=== PATIENT | female | born 1955 | race Caucasian/White ===

== ENCOUNTER 2018-06-15 07:09 | Day surgery (SDC) | payer OTHER ==
[~2018-06-15 07:09] MED LIST: LACTATED RINGERS 1,000 ML IV SCH
[2018-06-15 07:31] VITALS: TEMP 98.1
[2018-06-15] MEDS ORDERED: LACTATED RINGERS 1,000 ML IV ONE (07:31)
[2018-06-15] MEDS ORDERED: LIDOCAINE 1% 20 ML VIAL (10MG/ML) FOR IV START INTRADERMA ONE (07:31)
[2018-06-15] MEDS ORDERED: PROPOFOL 10 MG/ML 20 ML VIAL IV ONE (08:38)
[2018-06-15] MEDS ORDERED: LIDOCAINE 1% INJ 10MG/ML (20 ML MDV) ONE (08:38)
--- NOTE | 2018-06-15 09:07 | P.PCN ---
Date of Procedure: 06/15/18 Procedure(s) Performed: Procedure: Total colonoscopy. Preoperative diagnosis: Screening for neoplasia. Postoperative diagnosis: Mild sigmoid diverticulosis with no evidence of acute diverticulitis, strictures, polyps or cancer. Preparation: HalfLytely prep. Sedation: Was provided by anesthesia. Brief clinical history: The patient is a 62-year-old female who is scheduled for this evaluation for screening for neoplasia. She had a prior exam in 2009. She has no abdominal complaints, bleeding or anemia. Procedure: With the patient on her left lateral decubitus position and after informed consent and adequate sedation, the perianal area was inspected and it did not show any fissures or fistulas. There were no masses felt on digital rectal examination. The Olympus CFQ 160L video colonoscope was then inserted in the rectum in the usual fashion and advanced to the cecum. There were few diverticular orifices seen scattered in the sigmoid but I saw no evidence of acute diverticulitis or strictures. No polyps or tumors were seen. The mucosa appeared healthy. I retroflexed the endoscope in the rectum before the endoscope was withdrawn. The patient tolerated the procedure well. Plan: The patient was reassured. Discussed dietary measures. She will follow- up with you as planned and I recommended repeat exam in 10 years.
[2018-06-15 09:34] VITALS: BP 125/84; PULSE 50; RESP 16
[2018-06-15] MEDS ORDERED: LACTATED RINGERS 1,000 ML IV SCH (21:45)
== END 2018-06-15 09:42 | disposition home or self-care (01) ==
LOC: ORWHC2ENDO 07:09
DX: Z12.11 Encounter for screening for malignant neoplasm of colon (principal); K57.30 Diverticulosis of large intestine without perforation or abscess without bleeding; E07.9 Disorder of thyroid, unspecified; Z79.82 Long term (current) use of aspirin; Z79.890 Hormone replacement therapy
CPT/HCPCS: J2001; J2704; G0121

== ENCOUNTER → 2021-03-02 | Outpatient (CLI) | payer OTHER ==
--- NOTE | 2021-03-02 13:18 | MR ---
EXAMINATION TYPE: MR knee LT wo con DATE OF EXAM: 03/02/2021 COMPARISON: 12/11/2010 HISTORY: Left knee pain. Multiplanar multiecho imaging of the left knee was performed without contrast. There is knee joint effusion. There is evidence of a complete tear of the anterior cruciate ligament. Posterior cruciate ligament is intact. The collateral ligaments are intact. There is hypertrophic sp urring of the lateral femoral and tibial condyles. There is significant narrowing of the lateral join t space. There is increased signal throughout the entire lateral meniscus. There is thinning of the m eniscus. There is small area of increased signal in the posterior horn medial meniscus extending to t he inferior surface. There is subchondral increased signal on the T2 images in the lateral tibial condyle consistent with degenerative cyst formation and bone bruise. There is hypertrophic spurring on the patella. There is hypertrophic spurring of the anterior aspect of the femoral condyles. IMPRESSION: Moderately severe osteoarthritis that is worse in the lateral joint space. Subchondral edema in the l ateral tibial condyle. Extensive tears of the lateral meniscus. There is small oblique tear of the po sterior horn medial meniscus. Knee joint effusion. Complete tear of the anterior cruciate ligament. Mild subcutaneous edema over th e anterior patella tendon. There is progression of the osteoarthritis compared to old exam. Anterior cruciate ligament tear is a change compared to old exam. Knee joint effusion slightly increased compared to old exam.
== END | disposition home or self-care (01) ==
LOC: RADMRIMAIN 11:31
PROVIDERS: ATTEND Orthopaedic Surgery
DX: M17.12 Unilateral primary osteoarthritis, left knee (principal); S83.242A Other tear of medial meniscus, current injury, left knee, initial encounter; S83.512A Sprain of anterior cruciate ligament of left knee, initial encounter; X58.XXXA Exposure to other specified factors, initial encounter

== ENCOUNTER → 2021-03-19 | Outpatient (CLI) | payer OTHER ==
[2021-03-19 10:20] LABS: Basophils % (A) 1 %; Eosinophils # (A) 0.2 k/uL (0-0.7); Eosinophils % (A) 2 %; HCT 39.5 % (34.0-46.0); HGB 13.4 gm/dL (11.4-16.0); Lymphocytes # (A) 1.8 k/uL (1.0-4.8); Lymphocytes % (A) 26 %; MCH 30.2 pg (25.0-35.0); MCHC 33.9 g/dL (31.0-37.0); MCV 89.2 fL (80.0-100.0); Mean Platelet Volume 8.6; Monocytes # (A) 0.6 k/uL (0-1.0); Monocytes % (A) 8 %; Neutrophils # (A) 4.5 k/uL (1.3-7.7); Neutrophils % (A) 62 %; Platelet Count 302 k/uL (150-450); RBC 4.43 m/uL (3.80-5.40); RDW 13.7 % (11.5-15.5); WBC 7.2 k/uL (3.8-10.6)
[2021-03-19 10:43] LABS: Potassium 4.8 mmol/L (3.5-5.1)
== END | disposition home or self-care (01) ==
LOC: LABPAT 09:08
PROVIDERS: ATTEND Orthopaedic Surgery
DX: Z01.810 Encounter for preprocedural cardiovascular examination (principal); Z01.812 Encounter for preprocedural laboratory examination; M23.92 Unspecified internal derangement of left knee
CPT/HCPCS: 36415; 80051; 85025; 93005

== ENCOUNTER → 2021-04-03 | Day surgery (SDC) | payer OTHER ==
--- NOTE | 2021-04-02 17:49 | HP ---
HISTORY AND PHYSICAL DATE OF SURGERY: 04/03/2021 Michelle Cooney is a 65-year-old patient seen with progressive left knee pain. We discussed options for treatment. She elected to proceed with arthroscopy. Consent was obtained. PAST MEDICAL HISTORY: Hypothyroidism. PAST SURGICAL HISTORY: Knee arthroscopy. DAILY MEDICATIONS: Aleve, levothyroxine. ALLERGIES: None. SOCIAL HISTORY: She denies current tobacco use. PHYSICAL EVALUATION OF THE LEFT KNEE: Range of motion 0 to 130. Tenderness along the medial joint line. Tenderness along the lateral joint line. Positive medial Kiera's. Positive lateral Kiera's. Ligaments stable. Hip rotation without pain. Distal neurovascular exam intact. RADIOGRAPHS: Radiographs of the left knee revealed some moderate osteoarthritic changes. MRI left knee revealed medial and lateral meniscal tears along with ACL tear and intraarticular effusion. IMPRESSION: 1. Internal derangement of left knee with medial and lateral meniscal tears. 2. Left knee ACL tear. 3. Hypothyroidism. PLAN: Left knee arthroscopy with partial meniscectomy and debridement. MMODL / IJN: [id number] /
[~2021-04-03] MED LIST changes: +BUPIVACAINE (PF) 0.25% 30 ML VIAL INTRAARTIC ONE; +DEXAMETHASONE SOD PHOSPHATE 4 MG/ML 1 ML VIAL IV ONE; +HYDROcodone/APAP 5-325MG 1 EACH TAB ONE; +HYDROcodone/APAP 5-325MG 1 EACH TAB PO ONE; +HYDROmorphone 0.5 MG/0.5 ML SYRINGE IVP PRN; +KETOROLAC 15 MG/ML 1 ML VIAL ONE; +LIDOCAINE 1% (10MG/ML) FOR IV START INTRADERMA PRN; +LIDOCAINE 1% INJ 10MG/ML (20 ML MDV) ONE; +METOCLOPRAMIDE 5 MG/ML 2 ML VIAL IVP PRN; +MIDAZOLAM 2 MG/2 ML VIAL IV PRN; +MIDAZOLAM 2 MG/2 ML VIAL ONE; +ONDANSETRON 4 MG/2 ML VIAL IVP ONE; +PROPOFOL 10 MG/ML 20 ML VIAL IV ONE; +fentaNYL (PF) 50 MCG/ML 2 ML AMP ONE
--- NOTE | 2021-04-03 10:01 | P.OP ---
Date of Procedure: 04/03/21 Preoperative Diagnosis: Internal derangement left knee Postoperative Diagnosis: 1. Tear lateral meniscus left knee 2. Grade 2/3 chondromalacia medial femoral condyle left knee 3. Grade 4 chondromalacia lateral tibial plateau left knee 4. Grade 4 chondromalacia femoral sulcus left knee 5. Reactive synovitis medial, lateral and suprapatellar compartments left knee Procedure(s) Performed: 1. Arthroscopic partial lateral meniscectomy left knee 2. Arthroscopic chondroplasty medial femoral condyle left knee 3. Arthroscopic partial synovectomy medial, lateral and suprapatellar compartments left knee Anesthesia: KULWINDERA, local Surgeon: Hai Ríos Estimated Blood Loss (ml): 9 Pathology: none sent Condition: stable Disposition: PACU Indications for Procedure: 65-year-old patient seen with progressive left knee pain. After having treatment options discussed, she elected to proceed with arthroscopy. Operative Findings: See description of procedure Description of Procedure: Patient was taken to the operative suite. Patient underwent a general anesthetic by the department of anesthesia. Patient was given preoperative antibiotics. The left lower extremity was placed in a well-padded arthroscopic leg myers. The left leg was prepped and draped in the normal sterile orthopedic fashion. A lateral parapatellar and suprapatellar incision was made. Trochars were inserted. Arthroscopy was initiated. Suprapatellar pouch revealed diffuse thick reactive synovitis. The patellofemoral joint appeared to articulate congruently. There with grade 4 chondromalacia of the femoral sulcus with areas of exposed bone. The scope was guided into the medial gutter. No loose bodies or plica were identified. The scope was then guided into the medial compartment. A medial parapatellar incision was made. Trocar inserted followed by probe. The medial meniscus was found to be stable. There were grade 2/3 chondromalacia changes of the medial femoral condyle some osteochondral tears present. There was thick reactive synovitis anteriorly. I performed a chondroplasty of the medial femoral condyle getting down to stable osteochondral tissue. I performed a partial synovectomy decompressing the reactive synovitis. The shaver was removed. The residual osteochondral surface was stable. There was good decompression of the synovitis. Scope and probe were then guided into the intercondylar notch. Cruciates were identified, probed and found to be stable. The scope and probe were then guided into lateral compartment. There was a complex tear involving the posterior horn of the lateral meniscus extending into the mid body. There was a radial tear of the anterior horn of lateral meniscus. There were grade 2/3 chondral malacia changes of the lateral femoral condyle without osteochondral tears. There was an area of grade 4 chondromalacia involving the posterior aspect of the lateral tibial plateau with exposed bone. There was thick reactive synovitis anteriorly. I performed a partial lateral meniscectomy getting down to stable meniscal tissue. I performed a partial synovectomy decompressing the thick reactive synovitis. The shaver was removed. The residual meniscus was stable. There was good decompression of the synovitis. The scope was in guided back into the suprapatellar compartment. I introduced a motorized shaver into the suprapatellar compartment. I debrided some piecemeal fragments of meniscus I encountered. I performed a partial synovectomy decompressing the thick reactive synovitis. The shaver was removed. There was good decompression of the synovitis. I now took one more look on the entire knee, no residual debris. Instruments were now removed from the joint. The joint was infiltrated with .25% Marcaine. The portal sites were approximated with nylon suture. Sterile dressings were applied. The patient was placed into a BETZAIDA hose. No tourniquet was utilized. The patient was awakened, transferred to a bed and taken to recovery stable satisfactory condition.
[2021-04-03 10:03] VITALS: TEMP 97.1
[2021-04-03 10:17] VITALS: RESP 16
[2021-04-03 11:30] VITALS: BP 124/69; PULSE 40
== END | disposition home or self-care (01) ==
LOC: OR 07:49
PROVIDERS: ATTEND Orthopaedic Surgery
DX: M94.262 Chondromalacia, left knee (principal); S83.282A Other tear of lateral meniscus, current injury, left knee, initial encounter; E03.9 Hypothyroidism, unspecified; Z79.890 Hormone replacement therapy; Z79.82 Long term (current) use of aspirin
CPT/HCPCS: 29881; J2250; J1100; J0690; J2405; J2001; J3010; J1885; J2704

== ENCOUNTER → 2022-06-19 | Outpatient (CLI) | payer OTHER | END | disposition home or self-care (01) | LOC: LABPAT 10:11 | PROVIDERS: ATTEND Orthopaedic Surgery | DX: Z01.812 Encounter for preprocedural laboratory examination (principal); M17.12 Unilateral primary osteoarthritis, left knee; Z22.322 Carrier or suspected carrier of Methicillin resistant Staphylococcus aureus | CPT/HCPCS: 87070 ==

== ENCOUNTER → 2022-07-18 | Outpatient (CLI) | payer OTHER ==
[2022-07-18 17:04] LABS: INR 0.93 (0.90-1.11); Prothrombin Time 10.5 sec (9.9-11.9)
[2022-07-18 17:47] LABS: Basophils # (A) 0.04 X 10*3/uL (0.00-0.10); Basophils % (A) 0.5 %; Eosinophils # (A) 0.16 X 10*3/uL (0.04-0.35); Eosinophils % (A) 2.1 %; HCT 39.4 % (37.2-46.3); HGB 12.3 g/dL (12.0-15.0); Immature Grans, Automated 0.3 %; Lymphocytes # (A) 2.02 X 10*3/uL (0.90-5.00); Lymphocytes % (A) 26.2 %; MCH 28.9 pg (27.0-32.0); MCHC 31.2 g/dL (32.0-37.0); MCV 92.7 fL (80.0-97.0); Mean Platelet Volume 12.2 fL (9.5-12.2); Monocytes # (A) 0.57 X 10*3/uL (0.20-1.00); Monocytes % (A) 7.4 %; NRBC Per 100 WBC 0 /100 WBCS (0.0-0.0); Neutrophils % (A) 63.5 %; Platelet Count 234 X 10*3/uL (140-440); RBC 4.25 X 10*6/uL (4.10-5.20); RDW 14.3 % (11.5-14.5); WBC 7.71 X 10*3/uL (4.50-10.00)
[2022-07-18 17:48] LABS: African American GFR (CKD) 90.3 (60.0-200.0); Anion Gap 12.3 mmol/L (10.00-18.00); BUN/Creat Ratio 15.5 Ratio (12.00-20.00); Blood Urea Nitrogen 12.4 mg/dL (9.0-27.0); Calcium 9.8 mg/dL (8.7-10.3); Carbon Dioxide 27.7 mmol/L (20.0-27.5); Non-African American GFR(CKD) 77.9 (60.0-200.0); Potassium 4.3 mmol/L (3.5-5.5)
== END | disposition home or self-care (01) ==
LOC: LABPAT 12:52
PROVIDERS: ATTEND Orthopaedic Surgery
DX: Z01.812 Encounter for preprocedural laboratory examination (principal); M17.12 Unilateral primary osteoarthritis, left knee
CPT/HCPCS: 80048; 85025; 85610

== ENCOUNTER → 2022-07-18 | Outpatient (CLI) | payer OTHER | END | disposition home or self-care (01) | LOC: LABWHC1 12:57 | PROVIDERS: ATTEND Family Medicine | DX: Z53.9 Procedure and treatment not carried out, unspecified reason (principal) ==

== ENCOUNTER 2022-08-04 10:34 | Day surgery (SDC) | payer OTHER ==
[2022-07-28 14:16] VITALS: BMI 30.9
--- NOTE | 2022-08-03 22:46 | HP ---
HISTORY AND PHYSICAL DATE OF SURGERY: 08/04/2022. HISTORY OF PRESENT ILLNESS: Michelle Cooney is a 66-year-old patient, seen with symptomatic left knee osteoarthritis. After treatment options were discussed, she elected to proceed with left total knee arthroplasty. Consent was obtained. Medical clearance was provided by Dr. Charles Wan. PAST MEDICAL HISTORY: Hypothyroidism. PAST SURGICAL HISTORY: Left knee arthroscopy. DAILY MEDICATIONS: 1. Aleve. 2. Levothyroxine. ALLERGIES: None. SOCIAL HISTORY: She denies tobacco use. PHYSICAL EVALUATION OF THE LEFT KNEE: Range of motion is -2/3 to 120. Mild effusion. Tenderness along the lateral joint line. Crepitus along the lateral patellofemoral compartments. Pain with patellofemoral compression. Ligaments are stable. Hip rotation is without pain. Distal neurovascular exam is intact. RADIOGRAPHS: Radiographs of the left knee revealed severe lateral compartment and unydhprl-[id number] patellofemoral compartment osteoarthritic changes. IMPRESSION: 1. Left knee osteoarthritis. 2. Hypothyroidism. PLAN: Left total knee arthroplasty. MMODL / IJN: [id number] /
[~2022-08-04 10:34] MED LIST changes: +ACETAMINOPHEN TAB 500 MG TAB PO PRN; -BUPIVACAINE (PF) 0.25% 30 ML VIAL INTRAARTIC ONE; -DEXAMETHASONE SOD PHOSPHATE 4 MG/ML 1 ML VIAL IV ONE; -HYDROcodone/APAP 5-325MG 1 EACH TAB ONE; -HYDROcodone/APAP 5-325MG 1 EACH TAB PO ONE; -HYDROmorphone 0.5 MG/0.5 ML SYRINGE IVP PRN; -KETOROLAC 15 MG/ML 1 ML VIAL ONE; -LACTATED RINGERS 1,000 ML IV SCH; -LIDOCAINE 1% (10MG/ML) FOR IV START INTRADERMA PRN; -LIDOCAINE 1% INJ 10MG/ML (20 ML MDV) ONE; +MELOXICAM 7.5 MG TAB PO PRN; -METOCLOPRAMIDE 5 MG/ML 2 ML VIAL IVP PRN; -MIDAZOLAM 2 MG/2 ML VIAL IV PRN; -MIDAZOLAM 2 MG/2 ML VIAL ONE; -ONDANSETRON 4 MG/2 ML VIAL IVP ONE; -PROPOFOL 10 MG/ML 20 ML VIAL IV ONE; +TRANEXAMIC ACID IN NACL,ISO-OS 1,000 MG in SALINE 1 100ML.BAG IVPB PRN; -fentaNYL (PF) 50 MCG/ML 2 ML AMP ONE
[2022-08-04] MEDS ORDERED: DEXAMETHASONE SOD PHOSPHATE 4 MG/ML 1 ML VIAL IV ONE (10:55)
[2022-08-04] MEDS ORDERED: LIDOCAINE 1% (10MG/ML) FOR IV START INTRADERMA PRN (10:55)
[2022-08-04] MEDS ORDERED: ONDANSETRON 4 MG/2 ML VIAL IVP ONE (10:55)
[2022-08-04] MEDS ORDERED: LACTATED RINGERS 1,000 ML IV SCH (10:55)
[2022-08-04] MEDS ORDERED: ONDANSETRON 4 MG/2 ML VIAL ONE (10:58)
[2022-08-04] MEDS ORDERED: MIDAZOLAM 2 MG/2 ML VIAL IVP ONE (11:38)
[2022-08-04] MEDS ORDERED: HYDROmorphone (PF) 1 MG/ML ONE (12:16)
[2022-08-04] MEDS ORDERED: ROCURONIUM 10 MG/ML (5 ML VIAL) IV ONE (12:16)
[2022-08-04] MEDS ORDERED: SUCCINYLCHOLINE CHLORIDE 200 MG/10 ML VIAL IV ONE (12:16)
[2022-08-04] MEDS ORDERED: ROPIVACAINE 5 MG/ML 30 ML VIAL ONE (12:16)
[2022-08-04] MEDS ORDERED: LIDOCAINE 2% INJ 20 MG/ML (2 ML VIAL) ONE (12:16)
[2022-08-04] MEDS ORDERED: SODIUM CHLORIDE 0.9% (PF) 10 ML VIAL ONE (12:16)
[2022-08-04] MEDS ORDERED: GLYCOPYRROLATE 0.2 MG/ML 2 ML VIAL ONE (12:16)
[2022-08-04] MEDS ORDERED: MIDAZOLAM 2 MG/2 ML VIAL ONE (12:16)
[2022-08-04] MEDS ORDERED: TRANEXAMIC ACID IN NACL,ISO-OS 1,000 MG/100 ML BAG ONE (12:16)
[2022-08-04] MEDS ORDERED: fentaNYL (PF) 50 MCG/ML 2 ML AMP ONE (12:16)
[2022-08-04] MEDS ORDERED: PROPOFOL 10 MG/ML 20 ML VIAL IV ONE (12:16)
[2022-08-04] MEDS ORDERED: NEOSTIGMINE 1 MG/ML 10 ML VIAL ONE (12:16)
[2022-08-04] MEDS ORDERED: ceFAZolin 1,000 MG in SODIUM CHLORIDE 0.9% 1,000 ML IRRIGATION ONE (12:45)
[2022-08-04] MEDS ORDERED: LACTATED RINGERS 1,000 ML IV ONE ×2 (14:03→15:36)
[2022-08-04] MEDS ORDERED: ONDANSETRON 4 MG/2 ML VIAL IVP PRN (14:03)
[2022-08-04] MEDS ORDERED: HYDROmorphone 1 MG/ML 1 ML SYRINGE IVP PRN (14:03)
[2022-08-04] MEDS ORDERED: HYDROcodone/APAP 7.5-325MG 1 EACH TAB PO PRN (14:03)
[2022-08-04] MEDS ORDERED: HYDROmorphone 0.5 MG/0.5 ML SYRINGE IVP PRN ×2 (14:03)
[2022-08-04] MEDS ORDERED: NALOXONE 0.4 MG/ML 1 ML VIAL IV PRN (14:03)
[2022-08-04] MEDS ORDERED: HYDROcodone/APAP 5-325MG 1 EACH TAB PO PRN (14:03)
--- NOTE | 2022-08-04 14:03 | P.OP ---
Date of Procedure: 08/04/22 Preoperative Diagnosis: Left knee osteoarthritis Postoperative Diagnosis: Left knee osteoarthritis Procedure(s) Performed: Left total knee arthroplasty Implants: 1. Depuy attune size 5 narrow left cruciate retaining cemented femur 2. Depuy attune size 4 fixed bearing cemented tibial baseplate 3. Depuy attune size 5 fixed bearing cruciate retaining 5 mm polyethylene tibial insert 4. Depuy attune 38 mm all polyethylene cemented patella Anesthesia: GETA, regional (Adductor canal catheter, Ipack block) Surgeon: Hai Ríos [facility] Specialist #1: Mohan Lora Estimated Blood Loss (ml): 50 Pathology: other (Bone) Condition: stable Disposition: PACU Indications for Procedure: 66-year-old patient seen with symptomatic left knee osteoarthritis. After treatment options were discussed, she elected to proceed with left total knee arthroplasty. Operative Findings: see description of procedure Description of Procedure: Patient was taken to the operative suite after having an adductor canal catheter placed by the department of anesthesia. Patient underwent a general anesthetic by the department of anesthesia. Patient was given preoperative IV intake antibiotics and TXA. A well-padded tourniquet was placed about the left lower extremity. The lower extremity was then prepped and draped in the normal sterile orthopedic fashion. The extremity was elevated, a tourniquet was insufflated to 300. A standard anterior incision was made sharply through skin. Dissection was taken down through the subcutaneous soft tissues down to the extensor mechanism. A medial arthrotomy was performed, patella was everted and knee was flexed. There was advanced osteoarthritis noted. I introduced my distal intramedullary femoral drill. I then introduced the distal femoral cutting jig. Juancho ROBERT secured the cutting jig with 2 pins. I held retractors in position while Juancho ROBERT performed the distal femoral resection through the guide area we now removed her distal femoral cutting guide. We now placed our 4-in-1 femoral cutting block and positioned and it was secured with 2 pins by Juancho ROBERT while I held the block in position. The distal femoral finishing was now completed. A proximal tibial cutting guide was positioned. I held the guide in the appropriate position with both hands while Juancho ROBERT inserted stabilizing pins into the guide. Proximal tibial cut was made. We now placed a trial femoral component into position, along with an appropriate size tibial tray and insert. We now took the knee through range of motion and had full extension good flexion and good overall soft tissue balance noted. The patella was everted and stabilized with 2 towel clips held by Juancho ROBERT while I performed a flush with patellar quad tendon utilizing a fresh sawblade. We templated the patella, appropriate drill holes were made. An appropriate trial patella was positioned, knee was taken through full range of motion with the patella tracking very nicely. The trial patella was removed. Drill holes were made through the femoral component. All trial components were removed after marking off the appropriate rotation of the tibia. Retractors were now positioned along the proximal tibia. An appropriate keel punch was made with the appropriate size tibial guide by myself on Juancho ROBERT assisted by holding retractors. At this point appropriate size implants were chosen and opened. The joint was irrigated copiously with pulse lavage mechanical irrigation. The wound was irrigated with pulse lavage mechanical irrigation. We mixed antibiotic methylmethacrylate. We placed the knee into flexion. We placed multiple retractors assisted by Juancho ROBERT to expose the proximal tibia. Once the methyl methacrylate was ready, the tibial component was cemented into place removing any excess methylmethacrylate form by both myself and Juancho ROBERT. The femoral component was cemented into place removing the removing any excess methylmethacrylate performed by both myself and Juancho ROBERT. We then inserted the appropriate size polyethylene tibial insert. We made sure that it was locked into position. We took the knee into full extension, and then back in a flexion making sure we had removed any excess methylmethacrylate. The patellar component was then cemented down and secured with clamp. Excess methylmethacrylate removed. We kept the knee in full extension, patellar clamp in position until methylmethacrylate had hardened. Once it had hardened the patellar clamp was removed. The knee was taken through full range of motion. The patella tracked nicely. There was good soft tissue balancing. The tourniquet was now released. Additional hemostasis was achieved via electrocautery. A second gram of TXA was given. The wound again was irrigated with pulse lavage mechanical irrigation. The superficial soft tissues were infiltrated local analgesic. The extensor mechanism was repaired with Ethibond suture. We checked the repair with range of motion and it was stable. The subcutaneous soft tissues were repaired with Vicryl in layers. The skin was approximated with pernio/Dermabond. Sterile dressings were applied followed by loose web roll and Shravan bandage. The patient was transferred to a bed, and taken to recovery in stable and satisfactory condition. Juancho ROBERT assisted with this complex procedure.
[2022-08-04] MEDS ORDERED: ROPIVACAINE 0.2%-NS ON-Q PUMP 1,090 MG, EMPTY PAIN BALL 1 EACH MISCELLANE PRN (14:06)
--- NOTE | 2022-08-04 14:10 | P.ANPRN ---
Procedure Note - Anesthesia - Nerve Block Performed Left Adductor Canal Time Out Performed: Yes (:37) Date of Procedure: 08/04/22 Procedure Start Time: Procedure Stop Time: :46 Location of Patient: PreOp Indication: Acute Post-Operative Pain, Requested by Surgeon (Dr Ríos) Sedation Type: Sedate with meaningful contact maintained Preparation: Sterile Prep, Sterile Dressing Position: Supine Catheter: Indwelling Needle Types: Pajunk Needle Gauge: 21 Ultrasound used to visualize needle placement: Yes Ultrasound used to observe medication spread: Yes Injectate: 0.5% Ropivacaine (see comment for volume) (15cc) Blood Aspirated: No Pain Paresthesia on Injection Noted: No Resistance on Injection: Normal Image Stored and Saved: Yes Events: Uneventful and Well Tolerated
--- NOTE | 2022-08-04 14:11 | P.ANPRN ---
Procedure Note - Anesthesia - Nerve Block Performed Left iPack Time Out Performed: Yes Date of Procedure: 08/04/22 Procedure Start Time: 11:47 Procedure Stop Time: 11:52 Location of Patient: PreOp Indication: Acute Post-Operative Pain, Requested by Surgeon (Dr Ríos) Sedation Type: Sedate with meaningful contact maintained Preparation: Sterile Prep Position: Supine Catheter: None Needle Types: Pajunk Needle Gauge: 21 Ultrasound used to visualize needle placement: Yes Ultrasound used to observe medication spread: Yes Injectate: 0.5% Ropivacaine (see comment for volume) (15cc +5cc PF Normal saline) Blood Aspirated: No Pain Paresthesia on Injection Noted: No Resistance on Injection: Normal Image Stored and Saved: Yes Events: Uneventful and Well Tolerated
[2022-08-04] MEDS: HYDROmorphone 0.5 MG/0.5 ML SYRINGE IVP PRN ×3 (14:35→15:09)
[2022-08-04 14:40] VITALS: TEMP 96.8
[2022-08-04 14:54] VITALS: RESP 16
--- NOTE | 2022-08-04 14:58 | XR ---
EXAMINATION TYPE: XR knee limited LT DATE OF EXAM: 08/04/2022 COMPARISON: None HISTORY: Post left knee replacement TECHNIQUE: 2 view left knee FINDINGS: Tibial and femoral components in place. No acute fractures are evident. Postsurgical soft t issue changes are evident. IMPRESSION: 1. No acute fracture post left knee replacement.
[2022-08-04 17:31] VITALS: BP 145/76; PULSE 60
== END 2022-08-04 18:04 | disposition home health service (06) ==
LOC: OR 10:34
PROVIDERS: ATTEND Orthopaedic Surgery
DX: M17.12 Unilateral primary osteoarthritis, left knee (principal); G89.18 Other acute postprocedural pain; E03.9 Hypothyroidism, unspecified; Z79.1 Long term (current) use of non-steroidal anti-inflammatories (NSAID); Z79.890 Hormone replacement therapy
CPT/HCPCS: 27447; 97530; 97161; 64999; 64448; 76942; 88300; 73560; C1776; C1713 ×2; C1751; J2250; J0330; J1100; J2710; J0690 ×2; J2405; J3010; J1170 ×2; J2795 ×2; J2704; J2001

== ENCOUNTER → 2024-11-22 | Outpatient (CLI) | payer MEDICARE ==
[2024-11-22 15:19] VITALS: BP 146/76; PULSE 56; RESP 16; TEMP 98
--- NOTE | 2024-11-22 18:42 | P.SLEEP ---
History of Present Illness H&P Date: 11/22/24 This is a 69-year-old female patient who is coming in to be reevaluated for sleep apnea after many years of interruption. I have diagnosed patient with sleep apnea back in 2016. At that time, her sleep study showed mild disease with an AHI of 13.2 and the patient was offered a CPAP machine at a pressure of 7 cm of water. Over the years, the patient remained extremely compliant to CPAP therapy and the patient continues to see benefit of treatment. For now, she is going to bed at around 10:30 PM and she is waking up 7:30 AM in the morning. She is averaging between 7 to 8 hours of sleep per night. No snoring while wearing the CPAP machine. No reported apneas and she denies waking up choking or gasping for air. No nocturia. No sleepwalking or sleep talking. No anxiety or panic attacks. No nocturnal heartburn chest pain or shortness of breath. She falls asleep easily and she is able to generate sleep within minutes. Denies having any excessive hypersomnia or sleepiness. Her Wysox score is at 4. She drinks 2 cups of coffee in the morning. No vivid dreams. No naps durin g the day. She is sleeping on her back and she is using a nasal mask, DreamWear nasal small size. Since her last evaluation, no new onset comorbidities. The patient has osteoarthritis and she has undergone a left knee replacement. She also has hypothyroidism and she is currently on levothyroxine. I performed a compliance check from her CPAP machine. Over the past 30 days, the patient utilized the machine 29/30 days and the patient has achieved more than 4 hours of usage 29/30 days. Has been averaging around 8.4 hours of CPAP at night and the patient's leak is noted of 0 L/min and the AHI is down to 0.7. The patient has a small size DreamWear nasal mask. She wants to maintain the same mask interface. Her weight is up by around 7 pounds over the past 8 years. No cardiovascular complications. No angina. No palpitations. No cardiac arrhythmias. No atrial fibrillation. No stroke. Review of Systems Constitutional: Reports as per HPI Eyes: denies as per HPI, denies blurred vision, denies bulging eye, denies decreased vision, denies diplopia, denies discharge, denies dry eye, denies irritation, denies itching, denies pain, denies photophobia, denies loss of peripheral vision, denies loss of vision, denies tunnel vision/blind spots Ears: deny: decreased hearing, ear discharge, earache, tinnitus Ears, nose, mouth and throat: Reports as per HPI Breasts: absent: as per HPI, change in shape, gynecomastia, masses, nipple discharge, pain, skin changes, swelling Cardiovascular: Reports as per HPI Respiratory: Reports sleep apnea, Reports snoring Gastrointestinal: Reports as per HPI Genitourinary: Reports as per HPI Menstruation: Reports as per HPI Musculoskeletal: Reports as per HPI Integumentary: Reports as per HPI Neurological: Reports as per HPI Psychiatric: Reports as per HPI Endocrine: Reports as per HPI Hematologic/Lymphatic: Reports as per HPI Allergic/Immunologic: Reports as per HPI Past Medical History Past Medical History: Osteoarthritis (OA), Sleep Apnea/CPAP/BIPAP, Thyroid Disorder Additional Past Medical History / Comment(s): snoring when not using cpap History of Any Multi-Drug Resistant Organisms: None Reported Past Surgical History: Orthopedic Surgery Additional Past Surgical History / Comment(s): COLONOSCOPY. LT KNEE SCOPE Past Anesthesia/Blood Transfusion Reactions: No Reported Reaction Past Psychological History: No Psychological Hx Reported Smoking Status: Never smoker Past Alcohol Use History: Occasional Past Drug Use History: None Reported - Past Family History Mother Family Medical History: Myocardial Infarction ([place]) Sister(s) Family Medical History: Hyperlipidemia Additional Family Medical History / Comment(s): arthritis (unknown type) Father Family Medical History: Coronary Artery Disease (CAD) Medications and Allergies Home Medications Medication Instructions Recorded Confirmed Type Aspirin [Adult Low Dose Aspirin EC] 81 mg PO DAILY 06/10/18 08/04/22 History Levothyroxine Sodium [Synthroid] 88 mcg PO QAM 06/10/18 11/22/24 History Naproxen Sodium [Aleve] 220 mg PO BID PRN 07/28/22 08/04/22 History Ascorbic Acid/Elderberry Fruit 1 tab PO DAILY 07/29/22 08/04/22 History [Elderberry-Vit C 50-100 mg Chw] Aspirin [Adult Low Dose Aspirin EC] 81 mg PO BID #60 tab 08/04/22 11/22/24 Rx HYDROcodone/APAP 7.5-325MG [[place] 1 each PO Q6HR PRN #42 tab 08/04/22 Rx 7.5] Sennosides/Docusate Sodium 1 each PO DAILY PRN #30 tablet 08/04/22 Rx [Senna-S 8.6-50 mg Tablet] ondansetron HCL [Zofran] 8 mg PO Q12HR PRN #21 tab 08/04/22 Rx Allergies Allergy/AdvReac Type Severity Reaction Status Date / Time No Known Allergies Allergy Verified 08/04/22 11:06 Physical Exam Vitals: Vital Signs Temp Pulse Resp BP Pulse Ox 11/22/24 15:17 98 F 56 L 16 146/76 97 Intake and Output 11/22/24 11/22/24 11/22/24 06:59 14:59 22:59 Other: Weight 82.1 kg The patient appeared well nourished and normally developed. Vital signs as documented. The patient has a body mass index of 32 with a weight of 181 pounds Head exam is unremarkable. No scleral icterus or corneal arcus noted. Neck is without jugular venous distension, thyromegaly, or carotid bruits. Carotid upstrokes are brisk bilaterally. Lungs are clear to auscultation and percussion. Cardiac exam reveals the PMI to be normally sized and situated. Rhythm is regular. First and second heart sounds normal. No murmurs, rubs or gallops. Abdominal exam reveals normal bowel sounds, no masses, no organomegaly and no aortic enlargement. Extremities are nonedematous and both femoral and pedal pulses are normal. Examination of the skin revealed no evidence of significant rashes, suspicious appearing nevi or other concerning lesions. Neurologically, the patient is awake and alert and the patient does not have any focal neurological deficit. Cranial nerves are essentially intact. Assessment and Plan Plan: Obstructive sleep apnea, mild in severity, diagnosed with established back in 2016 and the patient has an AHI of 13.2 and the patient continues to receive successful CPAP therapy. Chronic hypersomnia, improved with CPAP therapy. Current Wysox score is a 4 Hypothyroidism Degenerative arthritis Plan The patient is successfully treated with CPAP therapy She has a ResMed 11 which is set at a pressure of 7 cm of water. Treatment remains successful. Compliance check was done and the patient is AHI is down to 0.7 while being on treatment. Will maintain the same CPAP pressure Will maintain the same mask interface Encourage weight loss Very good sleep hygiene measures Continues on levothyroxine Her machine is functional there is no need to update her machine at this point in time. The patient will see back in 2 years time in follow-up. Refills on her supplies will be given. Sleep Note - Sleep Data ESS Total: 4 - Sleep Note Sleep Note: Temperature: 98 F Pulse Rate: 56 Respiratory Rate: 16 Blood Pressure: 146/76 SpO2: 97 Height: 5 ft 3 in Weight: 82.1 kg BMI: Neck Circumference: 14.5
== END ==
LOC: 3 N SLEEP 14:24
PROVIDERS: ATTEND Internal Medicine Critical Care Medicine
DX: G47.33 Obstructive sleep apnea (adult) (pediatric) (principal); E03.9 Hypothyroidism, unspecified; M19.90 Unspecified osteoarthritis, unspecified site; Z99.89 Dependence on other enabling machines and devices
CPT/HCPCS: 99211